=== PATIENT | female | born 1995 | race Caucasian/White ===

== ENCOUNTER → 2023-05-05 15:47 | Outpatient (CLI) | payer OTHER, SELFPAY ==
--- NOTE | 2023-05-05 15:49 | DI.MRI.S_ITS ---
PROCEDURE: MR BRAIN (PITUITARY) WWO CON INDICATIONS: primary oligmenorrhea/hyperprolactinemia TECHNIQUE: Noncontrast sagittal and axial FLAIR, axial gradient echo, axial diffusion and ADC through the brain. Thin-slice sagittal and coronal T1 spin echo, coronal T2 fast spin echo through the pituitary. After the administration contrast, optional dynamic coronal T1 spin echo, thin-slice coronal and sagittal T1 spin echo images through the pituitary fossa; axial and coronal and sagittal T1 spin echo with fat saturation through the brain. COMPARISON: None. FINDINGS: Image quality: Excellent. Pituitary Gland: Hypoenhancing nodule within the right inferior aspect of the pituitary gland measuring 5 x 5 x 4 mm (TV by AP by cc). The main to the pituitary gland enhances normally. The pituitary stalk is midline. CSF Spaces: Ventricles are normal in size and shape. Basal cisterns are patent. No extra-axial fluid collections. Brain: No intracranial bleeds or mass effects. No abnormal intracranial enhancement. Calle-white matter interface is intact. Few nonspecific foci of FLAIR signal abnormality within the right frontal lobe, likely within normal limits for age. Diffusion weighted images demonstrate no acute ischemic insults. Brainstem is normal. Normal intravascular flow voids are present. Skull and face: Calvarial marrow is normal in signal. Orbits appear normal. Sinuses: Sinuses and mastoids are clear. IMPRESSION: Hypoenhancing nodule within the right inferior aspect of the pituitary gland measuring 5 mm, consistent with a pituitary micro adenoma. Dictated by: Tyree Berg M.D. on 05/05/2023 at 17:03 Approved by: Tyree Berg M.D. on 05/05/2023 at 17:07
== END ==
LOC: MRI 15:48
PROVIDERS: Referring Provider Student in an Organized Health Care Education/Training Program; Visit Provider Student in an Organized Health Care Education/Training Program
DX: E23.6 Other disorders of pituitary gland (principal); E22.1 Hyperprolactinemia; N91.3 Primary oligomenorrhea
CPT/HCPCS: 70553; A9579